=== PATIENT | female | born 1970 | race Caucasian/White ===

== ENCOUNTER 2020-12-12 04:34 | Emergency (ER) | payer OTHER, MEDICAID, SELFPAY ==
[2020-12-12 04:43] VITALS: BP 135/87; PULSE 87; RESP 18; TEMP 36.7; O2SAT 99
[2020-12-12 05:12] LABS: COVID19 -Nasal RAPID Negative (Negative)
--- NOTE | 2020-12-12 05:15 | ED.RECABL ---
HPI - Recheck/Abnormal Lab/Rx General Chief Complaint: Recheck/Abnormal Lab/Rx Stated Complaint: possible covid exposure Time Seen by Provider: 12/12/20 04:41 Source: patient Mode of arrival: Ambulatory Limitations: no limitations History of Present Illness HPI narrative: Patient is a 50-year-old female. She is vaccinated against COVID-19. States that a couple days ago she was ?around really sick people ?she states that they were not wearing their masks. The in been diagnosed with bronchitis but she was concerned that maybe it was COVID so she came to the emergency department at 0500 hours in the morning to be tested. She has no symptoms. Review of Systems Constitutional Comments: She denies fevers Respiratory Comments: Denies cough or shortness of breath Gastrointestinal Comments: Denies any abdominal symptoms Patient History Medical History Medical history non-contributory Social History Smoking Status: Current every day smoker Smoking Status: Current every day smoker alcohol intake frequency: a few times a month Substance Use Type: heroin Exam Initial Vital Signs Initial Vital Signs: Vital Signs Temperature 98.1 F 12/12/20 04:43 Pulse Rate 87 12/12/20 04:43 Respiratory Rate 18 12/12/20 04:43 Blood Pressure 135/87 12/12/20 04:43 Pulse Oximetry 99 12/12/20 04:43 HENMT Head: normal to inspection Resp Effort & Inspection: normal respiratory effort Cardio Rate: regular rate Skin General: no rashes or lesions noted Neuro General: patient alert, patient awake and moves all extremities Course Orders Ordered: ED Orders 12/12/20 04:45 COVID19 -Nasal swab/Pre-Proc Stat Vital Signs Vital signs: Vital Signs - 8 hr 12/12/20 04:43 Temperature 98.1 F Pulse Rate 87 Respiratory Rate 18 Blood Pressure 135/87 Pulse Oximetry 99 MDM - Recheck/Abnormal Lab/Rx Lab Data Attestation: I reviewed the patient's lab results. Labs: Lab Results 12/12/20 Range/Units 04:45 SARS-CoV-2 (PCR) Negative (Negative) MDM Narrative Medical decision making narrative: Patient is a immunized and has no symptoms. Her COVID test was negative. She was informed of this. She is given return precautions and follow-up instructions. She expressed understanding and agreement. Discharge Plan Departure Patient Disposition: Home Clinical Impression: Encounter for laboratory testing for COVID-19 virus Instructions: About the COVID-19 Vaccine Activity Restrictions/Additional Instructions: Your COVID-19 test today was negative. Continue to follow current CDC guidelines. Return to the emergency department for any new or worsening symptoms
== END 2020-12-12 05:20 | disposition home or self-care (01) ==
PROVIDERS: Emergency Provider Emergency Medicine
DX: Z20.822 Contact with and (suspected) exposure to COVID-19 (principal)
CPT/HCPCS: 87635; 99281; 99282; C9803

== ENCOUNTER 2021-04-01 10:03 | Emergency (ER) | payer OTHER, MEDICAID, SELFPAY ==
[2021-04-01 10:10] VITALS: BP 105/57; PULSE 82; RESP 18; TEMP 36.8; O2SAT 100; BMI 25.8
--- NOTE | 2021-04-01 10:17 | DI.RAD.S_ITS ---
PROCEDURE: XR CHEST 2V INDICATIONS: cough, fever, chills TECHNIQUE: 2 views of the chest were acquired. COMPARISON: [facility], CR, XR CHEST 1 VIEW, 09/28/2018, 15:13. FINDINGS: Surgical changes and devices: Partially imaged left humeral fixation hardware. Lungs and pleura: Patchy airspace opacity in the left lower lung zone. Blunting of the left costophrenic sulcus, which may reflect atelectasis and/or pleural fluid. No pneumothorax. The right lung appears well aerated. Mediastinum: Mediastinal contours are normal. Heart size is normal. Bones and chest wall: No suspicious bony abnormalities. Soft tissues appear unremarkable. IMPRESSION: Airspace opacity in the left lower lung zone, concerning for pneumonic infiltrate. Dictated by: Shakeel Hunt M.D. on 04/01/2021 at 10:39 Approved by: Shakeel Hunt M.D. on 04/01/2021 at 10:40
--- NOTE | 2021-04-01 10:18 | ED_ITS ---
HPI - URI/Sore Throat General Chief Complaint: Upper Respiratory Symptoms Stated Complaint: Cough, congestion x 7 days Time Seen by Provider: 04/01/21 10:09 History of Present Illness HPI Narrative: 50-year-old female daily smoker presents with the chief complaint of various upper respiratory symptoms gradually worsening over the past 7 days. She has had runny nose, sore throat and cough along with occasional sputum production over that time frame. She has been exposed to multiple people have recently been found to be COVID positive. She had her 1st J and J vaccine about 6 months ago. She denies any nausea or vomiting but does have a poor appetite. She denies any chest pain or abdominal pain. She is not dizzy nor weak or lightheaded. Related Data Previous Rx's Medication Instructions Recorded benzonatate 200 mg capsule 200 mg PO BID PRN #20 cap 04/01/21 levofloxacin 750 mg tablet 750 mg PO DAILY 7 Days #7 tab 04/01/21 Allergies Allergy/AdvReac Type Severity Reaction Status Date / Time Penicillins Allergy Verified 04/01/21 10:22 Review of Systems Review of Systems Narrative: GENERAL: See HPI HEENT: See HPI RESPIRATORY: See HPI CARDIOVASCULAR: Denies chest pain, palpitations, orthopnea, edema, GASTROINTESTINAL: Denies nausea, vomiting, abdominal pain, diarrhea, constipation, melena. : Denies dysuria, frequency, incontinence, hematuria, urinary retention. MUSCULOSKELETAL: denies weakness, joint pain, or bony pain SKIN: Denies rash, skin lesions, or other NEUROLOGIC: Denies weakness, headache, numbness, change in speech, confusion, seizures, incoordination. PSYCHIATRIC: No concerning psychosocial issues. 12 point review of systems is negative except for those stated above Patient History Medical History Medical history non-contributory Social History Smoking Status: Current every day smoker Smoking Status: Current every day smoker alcohol intake frequency: a few times a month Substance Use Type: heroin Exam Narrative Exam Narrative: GENERAL: [50 year old patient appears stated age. Well-developed patient, in mild distress. HEAD: Atraumatic. Normocephalic. EYES: Pupils equal round and reactive. Extraocular motions intact. No scleral icterus. No injection or drainage. ENT: Nose without bleeding, purulent drainage. Throat without erythema, tonsillar hypertrophy or exudate. Airway patent. NECK: Trachea midline. Non tender CARDIOVASCULAR: Regular rate and rhythm without murmurs, gallops, or rubs. RESPIRATORY: Decreased breath sounds bilaterally with slight prolongation of expiratory phase, occasional harsh sounds with cough GASTROINTESTINAL: Abdomen soft, non-tender, nondistended. EXTREMITIES: No edema or joint tenderness. BACK: Nontender without deformity or crepitance. No flank tenderness. NEURO: AOx3. SKIN: No rash or erythema of visible areas Initial Vital Signs Initial Vital Signs: Vital Signs Temperature 98.2 F 04/01/21 10:10 Pulse Rate 82 04/01/21 10:10 Respiratory Rate 18 04/01/21 10:10 Blood Pressure 105/57 L 04/01/21 10:10 Pulse Oximetry 100 04/01/21 10:10 Course Orders Ordered: ED Orders 04/01/21 10:17 Chest [XR chest 2V] Stat 04/01/21 10:20 COVID19 -Nasal swab/Pre-Proc Stat Vital Signs Vital signs: Vital Signs - 8 hr 04/01/21 10:10 Temperature 98.2 F Pulse Rate 82 Respiratory Rate 18 Blood Pressure 105/57 L Pulse Oximetry 100 MDM - URI/Sore Throat Lab Data Labs: Lab Results 04/01/21 Range/Units 10:20 SARS-CoV-2 (PCR) Negative (Negative) Imaging Data Chest x-ray: Radiologist's Impression: Launch?[address] [address] XRay Report Signed Patient: Yoselin Morales MR#: [id number] : 1970 Acct:[id number] Age/Sex: 50 / F Date of Service: 04/01/21 Loc: ED Accession Number: [id number] ?? Procedure: XR chest 2V Ordering Provider: Manuel Jimenez D.O. PROCEDURE:? XR CHEST 2V ? INDICATIONS:? cough, fever, chills ? TECHNIQUE:? 2 views of the chest were acquired.? ? COMPARISON:? [facility], CR, XR CHEST 1 VIEW, 09/28/2018, 15:13. ? FINDINGS:? ? Surgical changes and devices:? Partially imaged left humeral fixation hardware.? ? Lungs and pleura:? Patchy airspace opacity in the left lower lung zone.? Blunting of the left costophrenic sulcus, which may reflect atelectasis and/or pleural fluid.? No pneumothorax.? The right lung appears well aerated. ? Mediastinum:? Mediastinal contours are normal.? Heart size is normal.? ? Bones and chest wall:? No suspicious bony abnormalities.? Soft tissues appear unremarkable.? ? IMPRESSION:? Airspace opacity in the left lower lung zone, concerning for pneum onic infiltrate. ? ? Dictated by: Shakeel Hunt M.D. on 04/01/2021 at 10:39 ? ? Approved by: Shakeel Hunt M.D. on 04/01/2021 at 10:40 ? MDM Narrative Medical decision making narrative: Daily smoker with worsening cough and subjective fever has left lower lobe pneumonia on chest x-ray. Patient is in no significant work of breathing, vital signs are reassuring, no hypoxemia noted. Patient tolerating orals and appropriate for discharge. Return precautions given and questions answered to her apparent satisfaction Discharge Plan Departure Patient Disposition: Home Clinical Impression: Left lower lobe pneumonia Activity Restrictions/Additional Instructions: *You have been diagnosed with [left lower lobe pneumonia. Your COVID swab is negative *What to do: *Please continue to take your regular medications as directed. [x ] New medication prescriptions sent to your pharmacy: [[facility] ] [ ] New medication written as a paper prescription [ ] No new medications given *Please follow up with your primary care provider in 2-3 days, call for an appointment. Let them know you were seen in the Emergency Department and that we ask that you be seen in follow up. We will electronically transmit a record of today's note if your PCP is in our system *If you do not have a primary care provider please contact the [facility] Resource line at [phone]. They will ask some questions about your medical history and help get you set up with a doctor in the community. *Return to Emergency Department if you should have any new, worsening or concerning symptoms, such as [fever greater than 101 F, shaking chills, worsening pain, persistent vomiting or other bothersome symptoms] Prescriptions: New levofloxacin 750 mg tablet 750 mg PO DAILY 7 Days Qty: 7 0RF benzonatate 200 mg capsule 200 mg PO BID PRN (Reason: cough) Qty: 20 0RF
[2021-04-01 10:41] LABS: COVID19 -Nasal RAPID Negative (Negative)
[2021-04-01 11:04] VITALS: BP 98/68; PULSE 70; RESP 14; O2SAT 96
== END 2021-04-01 11:08 | disposition home or self-care (01) ==
PROVIDERS: Emergency Provider Emergency Medicine
DX: J18.9 Pneumonia, unspecified organism (principal); F17.200 Nicotine dependence, unspecified, uncomplicated; Z20.822 Contact with and (suspected) exposure to COVID-19
CPT/HCPCS: 71046; 87635; 99283; C9803